=== PATIENT | female | born 1950 | race Caucasian/White ===

== ENCOUNTER 2020-03-10 13:21 | Observation (INO) | payer OTHER ==
[~2020-03-10] VITALS: Ht 167.6 cm; Wt 147.0 kg
--- NOTE | ~2020-03-10 | H ---
[address] [address] HISTORY AND PHYSICAL Name: LIZ PEREIRA Room: [address] Vicente Rosado#: [id number] Admission: 03/10/20 Attend Phys: Mk Medina DO Discharge: 03/11/20 Date of : 54 Report #: [id number] THIS REPORT FOR: //name// cc: Preet Funes John E. DO ~ THIS REPORT FOR: //name// For History and Physical please refer to the consultation note in the patient's medical record. By: 1451Medical Records Staff RAMAKRISHNA /HEATHER
[~2020-03-10 13:21] MED LIST: ACTOS15 MG; GLIPIZIDE 10 MG10 MG; LISINOPRIL-HCT1 EAC1; TRAMADOL 50 MG50 MG; ZOCOR40 MG
[2020-03-10 13:22] VITALS: BP 134/65
[2020-03-10] MEDS ORDERED: ASA81BEC PO (13:32)
[2020-03-10] MEDS ORDERED: OSTERA TABLET1 EAC1 PO (13:32)
[2020-03-10 15:23] VITALS: BP 107/55
[2020-03-10 20:00] VITALS: BP 127/67
[2020-03-11 08:10] VITALS: BP 136/65
[2020-03-11 13:00] VITALS: BP 136/65
--- NOTE | 2020-03-14 16:58 | OP ---
[address] [address] OPERATIVE REPORT Name: LIZ PEREIRA Room: [address] Alonzo#: [id number] Admission: 03/10/20 Attend Phys: Mk Medina DO Discharge: 03/11/20 Date of : 54 Report #: [id number] THIS REPORT FOR: //name// cc: Preet Funes John E. DO ~ THIS REPORT FOR: //name// CC: Preet Rodriguezie Jolanta DICTATED BY: Everett Bingham DO DATE OF SERVICE: 03/10/2020 TIME OF SURGERY: 15:30 SURGEON: Mk Medina DO ASSISTANTS: Margarita Medina DO and Everett Bingham DO PREOPERATIVE DIAGNOSIS: Left hip dislocation of total hip arthroplasty prosthesis. POSTOPERATIVE DIAGNOSIS: Left hip dislocation of total hip arthroplasty prosthesis. OPERATION PERFORMED: Closed reduction of left hip. INDICATIONS FOR SURGERY: The patient presented to [facility] ED accompanied by after bending forward at home, experiencing a sharp pain and slipping sensation causing her to fall and being unable to get up and bear weight on her left lower extremity. She presented to the [facility] Emergency Department where her leg was observed to be in a shortened and internally rotated position and slightly flexed relative to the left lower extremity. X-rays were obtained confirming that the left hip was in fact displaced. The femoral head was sitting posterior and superior relative to the acetabular cup. The femoral and acetabular components of the total hip arthroplasty prosthetic implants were determined to be well fixed and in proper alignment on x-rays. Closed reduction under conscious sedation in the Emergency Department was attempted, but was confirmed to be unsuccessful. DESCRIPTION OF PROCEDURE: Timeout was performed in the OR, confirming the patient, operative site. No preoperative antibiotics were given. Following timeout, the patient's left leg was placed into sustained manual traction for a brief period of time. Initial flexion, adduction, and internal rotation were used to attempt reduction of the hip. There was [place] [address] OPERATIVE REPORT Name: RANDALLLIZ A Room: [address]#: [id number] Admission: 03/10/20 Attend Phys: Mk Medina DO Discharge: 03/11/20 Date of : 54 Report #: [id number] indicating that the joint had been reduced. Traction was held, sustained manually for a longer period of time. Additional horizontal traction was applied as inline traction was maintained as well as adduction and slight internal rotation. The left hip was then felt to slip back into place with a palpable clunk. C-arm x-rays were obtained, verifying that the hip had been reduced. The patient was then awakened by Anesthesia. Again, she was under conscious sedation for this procedure. INTRAOPERATIVE FINDINGS: Left hip successfully reduced. No counts were necessary as this was a closed procedure. There were no drains. No specimens were removed. No implants. No blood loss. TOTAL FLUIDS GIVEN: 100. URINE OUTPUT: No urine output recorded. ANESTHESIA TYPE: Conscious sedation. ATTESTATION: I attest that Dr. Mk Medina was present in the operative suite for all critical parts of the procedure. DISPOSITION: The patient was transferred off the operative table onto a PACU table, re-aroused from the conscious sedation and participating in exam with Anesthesia and she was transferred to the PACU in stable condition. <ELECTRONICALLY SIGNED> By: Mk Medina DO 03/14/20 1658 1608 1624Roberjudy Medina DO /nt
== END 2020-03-11 13:35 | disposition home or self-care (01) ==
LOC: M.SUR 13:21 → M.ERS 13:21 → M.SUR 15:24 → M.3W 17:29
PROVIDERS: ADMIT Orthopaedic Surgery; ATTEND Orthopaedic Surgery
DX: S73.015A Posterior dislocation of left hip, initial encounter (principal); E11.9 Type 2 diabetes mellitus without complications; I10 Essential (primary) hypertension; X58.XXXA Exposure to other specified factors, initial encounter; Y92.89 Other specified places as the place of occurrence of the external cause; Y93.89 Activity, other specified; Y99.8 Other external cause status

== ENCOUNTER 2020-11-05 19:04 | Inpatient (IN) | payer OTHER ==
[~2020-11-05] VITALS: Ht 162.6 cm; Wt 140.4 kg
[~2020-11-05 19:04] MED LIST changes: +ASA81BEC PO; +OSTERA TABLET1 EAC1 PO
[2020-11-05 19:08] VITALS: BP 103/59
[2020-11-05 19:40] LABS: HEMATOCRIT 38.3 % (37.0-47.0); HEMOGLOBIN 12.8 gm/dL (12.0-15.0); MCH 30.8 pg (26.0-34.0); MCHC 33.4 g/dL (28.0-37.0); MCV 92.1 fL (80.0-100.0); NUCLEATED RBCS 0 /100WBC; PLATELET COUNT* 439 thou/uL (150-400); RBC 4.15 mil/uL (4.20-5.00); RDW-CV 14.2 % (10.5-14.5)
[2020-11-05 19:45] LABS: INFLUENZA A ANTIGEN Negative (Negative); INFLUENZA B ANTIGEN Negative (Negative)
[2020-11-05 19:48] LABS: CALCIUM 8.8 mg/dL (8.5-10.1); CREATININE 1.6 mg/dL (0.6-1.3)
[2020-11-05 19:57] LABS: INR 1.1; PROTIME 11.4 Seconds (9.20-11.50)
[2020-11-05 19:58] LABS: ALBUMIN 2.8 g/dL (3.4-5.0); MAGNESIUM 1.8 mg/dL (1.8-2.4); TOTAL BILIRUBIN 0.8 mg/dL (<0.1-1.0); TOTAL PROTEIN 7.1 g/dL (6.4-8.2)
[2020-11-05 20:07] LABS: ABSOLUTE EOSINOPHILS 0.2 thou/uL (0.0-0.7); ABSOLUTE LYMPHOCYTES 0.9 thou/uL (0.8-5.3); ABSOLUTE MONOCYTES 0.7 thou/uL (0.0-1.2); ABSOLUTE NEUTROPHILS 9.2 thou/uL (1.6-8.1)
[2020-11-05 20:08] LABS: PLATELET ESTIMATE ADEQUATE
[2020-11-05 21:30] VITALS: BP 104/55
[2020-11-05 21:34] LABS: URINE BLOOD NEGATIVE (Negative); URINE COLOR YELLOW; URINE GLUCOSE-RANDOM NEGATIVE (Negative); URINE KETONES 1+ (Negative); URINE LEUKOCYTES-REFLEX 1+ (Negative); URINE NITRITE-REFLEX NEGATIVE (Negative); URINE PROTEIN TRACE (Negative); URINE SPECIFIC GRAVITY >= 1.030 (1.005-1.030)
[2020-11-05 21:36] VITALS: BP 101/54
[2020-11-05 21:37] LABS: ICTOTEST (BILI CONFIRMATORY) Negative (Negative); URINE BILIRUBIN 3+ (Negative); URINE CLARITY HAZY
[2020-11-05 21:43] LABS: BACTERIA-REFLEX >30 Many /HPF (None Seen); CASTS None Seen /LPF (None Seen); CRYSTALS None Seen /LPF (None Seen); MUCUS 0-3 Light strn/LPF (None Seen); SQUAMOUS >10 Many /LPF (0-3); URINE RBC None Seen /HPF (0-2); URINE WBC-REFLEX >25 Many /HPF (0-5)
[2020-11-05 22:17] LABS: BE -5.5 mmol/L (-2 to +3); PCO2 28.2 mmHg (35.0-45.0); PO2 64.8 mmHg (75.0-100.0); pH 7.415 (7.340-7.450)
[2020-11-05 23:00] VITALS: BP 153/74
[2020-11-06 01:26] LABS: PCO2 26.6 mmHg (35.0-45.0); PO2 68.1 mmHg (75.0-100.0); pH 7.401 (7.340-7.450)
[2020-11-06 04:00] VITALS: BP 113/74
[2020-11-06 08:00] VITALS: BP 121/69
[2020-11-06 16:00] VITALS: BP 151/76
[2020-11-06 17:52] VITALS: BP 140/70
[2020-11-06 20:00] VITALS: BP 134/74
[2020-11-07] VITALS: BP 105/67
[2020-11-07 04:00] VITALS: BP 123/67
[2020-11-07 05:54] LABS: ABSOLUTE BASOPHILS 0.1 thou/uL (0.0-0.2); ABSOLUTE EOSINOPHILS 0.1 thou/uL (0.0-0.7); ABSOLUTE LYMPHOCYTES 0.4 thou/uL (0.8-5.3); ABSOLUTE MONOCYTES 0.3 thou/uL (0.0-1.2); ABSOLUTE NEUTROPHILS 9.6 thou/uL (1.6-8.1); BASOPHILS 0.5 %; EOSINOPHILS 1.1 %; HEMATOCRIT 34.9 % (37.0-47.0); HEMOGLOBIN 11.5 gm/dL (12.0-15.0); LYMPHOCYTES 3.5 %; MCH 30.8 pg (26.0-34.0); MCHC 32.9 g/dL (28.0-37.0); MCV 93.6 fL (80.0-100.0); MONOCYTES 2.8 %; MPV 8.7 fl. (7.2-11.1); NUCLEATED RBCS 0 /100WBC; PLATELET COUNT* 376 thou/uL (150-400); POLYS 92.1 %; RBC 3.73 mil/uL (4.20-5.00); RDW-CV 13.8 % (10.5-14.5); WBC 10.4 thou/uL (4.0-11.0)
[2020-11-07 06:04] LABS: CALCIUM 8.8 mg/dL (8.5-10.1); CREATININE 1.5 mg/dL (0.6-1.3); POTASSIUM 4.1 mmol/L (3.5-5.1)
--- NOTE | 2020-11-07 10:32 | EKG ---
[place] [address] ELECTROCARDIOGRAM REPORT Name: LIZ PEREIRA Room: [address] ADM IN 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
[2020-11-07 12:34] VITALS: BP 155/81
--- NOTE | 2020-11-07 13:10 | 2DMMODE ---
[place] [address] 2 D/M-MODE ECHOCARDIOGRAM Name: LIZ PEREIRA Room: [address] IN [facility]#: [id number] Admission: 11/05/20 Attend Phys: Tanja Tran, Discharge: Date of : 54 Date of Service: 11/07/20 1310 Report #: [id number] THIS REPORT FOR: cc: FAM - Family physician unknown FAM - Family physician unknown Jovani Simons MD [facility] ~ APPROVED REPORT Study performed: 11/07/2020 10:45:06 EXAM: Comprehensive 2D, Doppler, and color-flow Echocardiogram Patient Location: In-Patient Room #: [facility] Status: routine BSA: 2.31 HR: 107 bpm BP: 123/67 mmHg Rhythm: NSR Other Information Study Quality: Good Indications hypoxia 2D Dimensions IVSd: 12.30 (7-11mm) LVOT Diam: 19.93 (18-24mm) LVDd: 27.91 mm PWd: 12.04 (7-11mm) Ascending Ao: 32.00 (22-36mm) LVDs: 18.63 (25-40mm) Aortic Root: 30.91 mm Volumes Left Atrial Volume (Systole) LA ESV Index: 17.30 mL/m2 Aortic Valve AoV Peak Ky.: 1.73 m/s AO Peak Gr.: 11.92 mmHg LVOT Max P.48 mmHg AO Mean Gr.: 6.94 mmHg LVOT Mean P.03 mmHg LVOT Max V: 1.17 m/s AO V2 VTI: 29.54 cm LVOT Mean V: 0.82 m/s REBECCA (VTI): 2.15 cm2 LVOT V1 VTI: 20.39 [place] [address] 2 D/M-MODE ECHOCARDIOGRAM Name: LIZ PEREIRA Room: [address]#: [id number] Admission: 11/05/20 Attend Phys: Tanja Tran, Discharge: Date of : 54 Date of Service: 11/07/20 1310 Report #: [id number] Mitral Valve E/A Ratio: 0.76 MV Decel. Time: 137.47 ms MV E Max Ky.: 0.85 m/s MV PHT: 39.87 ms MVA (PHT): 5.52 cm2 TDI E/Lateral E': 7.08 E/Medial E': 10.63 Medial E' Ky.: 0.08 m/s Lateral E' Ky.: 0.12 m/s Pulmonary Valve PV Peak Ky.: 1.08 m/s PV Peak Gr.: 4.68 mmHg Left Ventricle The left ventricle is normal size. There is normal LV segmental wall motion. Mild concentric left ventricular hypertrophy. Left ventricular systolic function is normal. The left ventricular ejection fraction is within the normal range. LVEF is 60-65%. Grade I - abnormal relaxation pattern. Right Ventricle The right ventricle is normal size. The right ventricular systolic function is normal. Atria The left atrium size is normal. The right atrium size is normal. Aortic Valve Mild aortic valve sclerosis. No aortic regurgitation is present. There is no aortic valvular stenosis. Mitral Valve The mitral valve is normal in structure. There is no mitral valve regurgitation noted. No evidence of mitral valve stenosis. Tricuspid Valve The tricuspid valve is normal in structure. Trace tricuspid regurgitation. Unable to assess PA pressure. Pulmonic Valve The pulmonary valve is normal in structure. There is no pulmonic valvular reg[place] [address] 2 D/M-MODE ECHOCARDIOGRAM Name: LIZ PEREIRA Room: [address] IN [facility]#: [id number] Admission: 11/05/20 Attend Phys: Tanja Tran, Discharge: Date of : 54 Date of Service: 11/07/20 1310 Report #: [id number] Great Vessels The aortic root is normal in size. IVC is normal in size and collapses >50% with inspiration. Pericardium There is no pericardial effusion. <Conclusion> Mild concentric left ventricular hypertrophy. LVEF is 60-65%. Mild aortic valve sclerosis. <ELECTRONICALLY SIGNED> By: Jovani Simons MD, FACC 11/07/201309 09 09 Jovani Simons MD, FACC /INF
[2020-11-07 17:10] VITALS: BP 158/81
[2020-11-07 19:30] VITALS: BP 136/60
[2020-11-08 01:52] VITALS: BP 150/79
[2020-11-08 05:51] VITALS: BP 124/68
[2020-11-08 06:03] LABS: ABSOLUTE BASOPHILS 0.1 thou/uL (0.0-0.2); ABSOLUTE LYMPHOCYTES 0.4 thou/uL (0.8-5.3); ABSOLUTE MONOCYTES 0.9 thou/uL (0.0-1.2); ABSOLUTE NEUTROPHILS 12.7 thou/uL (1.6-8.1); BASOPHILS 0.9 %; HEMATOCRIT 37.1 % (37.0-47.0); HEMOGLOBIN 12.2 gm/dL (12.0-15.0); LYMPHOCYTES 2.8 %; MCH 30.7 pg (26.0-34.0); MCHC 32.7 g/dL (28.0-37.0); MCV 93.9 fL (80.0-100.0); MONOCYTES 6.6 %; MPV 8.4 fl. (7.2-11.1); NUCLEATED RBCS 0 /100WBC; POLYS 89.7 %; RBC 3.95 mil/uL (4.20-5.00); RDW-CV 13.9 % (10.5-14.5); WBC 14.1 thou/uL (4.0-11.0)
[2020-11-08 06:08] LABS: PLATELET COUNT* 476 thou/uL (150-400)
[2020-11-08 06:13] LABS: CREATININE 1.6 mg/dL (0.6-1.3); TOTAL BILIRUBIN 0.5 mg/dL (<0.1-1.0); TOTAL PROTEIN 6.8 g/dL (6.4-8.2)
[2020-11-08 08:00] VITALS: BP 152/49
--- NOTE | 2020-11-08 09:52 | EKG ---
[place] [address] ELECTROCARDIOGRAM REPORT Name: LIZ PEREIRA Room: [address] IN ..#: [id number] Admission: 11/05/20 Attend Phys: Tanja Tran, Discharge: Date of : 54 Date of Service: 11/08/20 0631 Report #: [id number] THIS REPORT FOR: //name// [facility] Test Date: 2020-11-08 Test Time: 06:31:35 Pat Name: LIZ PEREIRA Department: Room: [address] Gender: F Office Services Associate: NEIDA : 1950 Requested By: Milton España Order Number: [id number] MD: Rafi Nicolas Measurements Intervals [place] Rate: 111 P: 63 HI: 167 QRS: 30 QRSD: 105 T: 42 QT: 305 QTc: 415 Interpretive Statements Sinus tachycardia Artifact in lead(s) I,II,III,aVR,aVL,aVF Compared to ECG 11/05/2020 19:12:46 Sinus rhythm no longer present Electronically Signed On 11-08-2020 9:51:57 NAIL STICKER by Rafi Nicolas [email or web address] <ELECTRONICALLY SIGNED> By: Rafi Nicolas MD, FACC 11/08/2051 0 0 Rafi Nicolas MD, FAC /EPI
--- NOTE | 2020-11-08 09:52 | EKG ---
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: NEIDA : 1950 Requested By: Danilo Zavala Order Number: [id number] Reading MD: Rafi Nicolas Measurements Intervals [place] Rate: 108 P: 53 SD: 149 QRS: 24 QRSD: 111 T: 37 QT: 315 QTc: 422 Interpretive Statements Sinus tachycardia Abnormal R-wave progression, early transition Artifact in lead(s) I,II,III,aVR,aVL,aVF Compared to ECG 11/08/2020 06:31:35 No significant changes Electronically Signed On 11-08-2020 9:51:59 RESTAURANT MANAGING PARTNER by Rafi Nicolas [email or web address] <ELECTRONICALLY SIGNED> By: Rafi Nicolas MD, [facility] 11/08/20 0951 1 Rafi Nicolas MD, [facility] /EPI
[2020-11-08 12:00] VITALS: BP 116/87
[2020-11-08 19:30] VITALS: BP 132/63
[2020-11-08 21:56] VITALS: BP 117/56
[2020-11-09] VITALS (12 sets, daily range): BP systolic 95–136; BP diastolic 33–80
[2020-11-09 06:16] LABS: ABSOLUTE BASOPHILS 0.1 thou/uL (0.0-0.2); ABSOLUTE LYMPHOCYTES 0.4 thou/uL (0.8-5.3); ABSOLUTE MONOCYTES 0.7 thou/uL (0.0-1.2); ABSOLUTE NEUTROPHILS 10.1 thou/uL (1.6-8.1); BASOPHILS 1.3 %; EOSINOPHILS 0.1 %; HEMATOCRIT 32.3 % (37.0-47.0); HEMOGLOBIN 10.7 gm/dL (12.0-15.0); LYMPHOCYTES 3.5 %; MCHC 33.1 g/dL (28.0-37.0); MCV 93.9 fL (80.0-100.0); MONOCYTES 6.1 %; MPV 8.7 fl. (7.2-11.1); NUCLEATED RBCS 0 /100WBC; PLATELET COUNT* 384 thou/uL (150-400); RBC 3.44 mil/uL (4.20-5.00); RDW-CV 14.1 % (10.5-14.5); WBC 11.4 thou/uL (4.0-11.0)
[2020-11-09 06:31] LABS: ALBUMIN 2.5 g/dL (3.4-5.0); CALCIUM 8.9 mg/dL (8.5-10.1); CREATININE 1.4 mg/dL (0.6-1.3); MAGNESIUM 1.8 mg/dL (1.8-2.4); POTASSIUM 3.8 mmol/L (3.5-5.1); TOTAL BILIRUBIN 0.4 mg/dL (<0.1-1.0); TOTAL PROTEIN 5.6 g/dL (6.4-8.2)
[2020-11-10] VITALS (16 sets, daily range): BP systolic 101–151; BP diastolic 45–85
[2020-11-10 03:46] LABS: HEMATOCRIT 33.5 % (37.0-47.0); HEMOGLOBIN 10.9 gm/dL (12.0-15.0); MCH 30.9 pg (26.0-34.0); MCHC 32.7 g/dL (28.0-37.0); MCV 94.5 fL (80.0-100.0); MPV 8.5 fl. (7.2-11.1); NUCLEATED RBCS 0 /100WBC; PLATELET COUNT* 357 thou/uL (150-400); RBC 3.54 mil/uL (4.20-5.00); RDW-CV 14.5 % (10.5-14.5); WBC 11.8 thou/uL (4.0-11.0)
[2020-11-10 04:03] LABS: ALBUMIN 2.8 g/dL (3.4-5.0); CALCIUM 9.1 mg/dL (8.5-10.1); CREATININE 1.5 mg/dL (0.6-1.3); MAGNESIUM 1.9 mg/dL (1.8-2.4); POTASSIUM 4.4 mmol/L (3.5-5.1); TOTAL BILIRUBIN 0.3 mg/dL (<0.1-1.0); TOTAL PROTEIN 6.4 g/dL (6.4-8.2)
[2020-11-10 05:36] LABS: ABSOLUTE LYMPHOCYTES 0.7 thou/uL (0.8-5.3); ABSOLUTE MONOCYTES 0.2 thou/uL (0.0-1.2); ABSOLUTE NEUTROPHILS 10.9 thou/uL (1.6-8.1); ANISOCYTOSIS 1+; PLATELET ESTIMATE ADEQUATE; POIKILOCYTOSIS 1+
[2020-11-10 08:10] LABS: BE -1.6 mmol/L (-2 to +3); PCO2 34.9 mmHg (35.0-45.0); pH 7.425 (7.340-7.450)
--- NOTE | 2020-11-10 15:56 | CON ---
[address] [address] CONSULTATION Name: RANDALLLIZ Chanda Room: [address] IN .R.#: [id number] Admission: 11/05/20 Attend Phys: Tanja Tran MD Discharge: Date of : 54 Report #: [id number] THIS REPORT FOR: cc: FAM - Family physician unknown FAM - Family physician unknown ~ Jaron Greene MD DATE OF SERVICE: 11/07/2020 CONSULT REQUESTED BY: Danilo Zavala MD INDICATION FOR CONSULTATION: Acute hypoxemic respiratory failure secondary to COVID-19. HISTORY OF PRESENT ILLNESS: This is a 70-year-old female with past medical history as mentioned below. She does have morbid obesity, body mass index is 51.1 and it appears likely to me that the patient has fairly significant previously undiagnosed obstructive sleep apnea. The patient's baseline creatinine is not known to me. She is reported to be a lifetime nonsmoker. The patient provides only a limited history. Apparently, her recently had COVID-19. The patient is reported to have not been describing any symptoms; however, the patient's family was checking her pulse oximetry at home and found her to be hypoxemic and brought her to the Emergency Room. The patient at this time is describing only mild shortness of breath and denies any cough or sputum production. She also describes no fever or chills. The patient, however, is very hypoxic. At the time of my evaluation, she was on 90% FiO2 with 45 liters flow with a heated high-flow nasal cannula and was barely maintaining O2 saturation in the low 90s. The patient answers to the negative for 12 questions for review of systems. PAST MEDICAL HISTORY: Hypertension, diabetes, two pregnancies, C-sections, gallbladder surgery, bilateral total hip replacement, plates in the right wrist and right femur, morbid obesity, body mass index 51. SOCIAL HISTORY: There is no known history of smoking, ethanol abuse or drug abuse. CURRENT MEDICATIONS: List in [employer] reviewed. HOME MEDICATIONS: List in [employer] also reviewed. ALLERGIES: No known drug allergies. FAMILY HISTORY: There is a history of COVID-[place] [address] CONSULTATION Name: LIZ PEREIRA Room: [address]#: [id number] Admission: 11/05/20 Attend Phys: Tanja Tran MD Discharge: Date of : 54 Report #: [id number] PHYSICAL EXAMINATION: GENERAL: The patient is fully awake. VITAL SIGNS: She is tachycardic, pulse is 110 and a blood pressure of 158/81. She was saturating 93-94% with 90% FiO2 and 45 liters flow on a heated high-flow nasal cannula, respiratory rate was 20. She was afebrile with a temperature of 36.1. HEENT: Head is normocephalic and atraumatic. She does appear to have a narrow airway. NECK: Does not show raised JVP, asymmetry, mass or lymph nodes. CHEST: Symmetrical expansion on inspection and palpation. On auscultation, breath sounds are bilaterally equal. I do not hear any added sounds. HEART: Regular. There is no murmur. ABDOMEN: Soft and nontender. EXTREMITIES: Lower extremities show minimal edema only. There is no calf tenderness. SKIN: Dry and intact. NEUROLOGICAL: Moves all extremities bilaterally equally and spontaneously with no focal deficit identified. DIAGNOSTIC DATA: The patient's chest x-ray is reviewed and compared with the chest x-ray done 2 days ago. The patient has hypoxemia, which is out of proportion to the small interstitial infiltrates seen bilaterally. There is, however, a lobar infiltrate in the left lower lobe as well. There likely is atelectasis at the left lower lobe as well. It is possible there is a small pleural effusion; however, I do not clearly see a pleural effusion. The patient's lab work does show mild elevation in creatinine to around 1.5 in [facility] reviewed. Arterial blood gases does show a metabolic acidosis, compensated in [facility] reviewed. COVID-19 antigen is positive. D-dimer is significantly elevated. The urinalysis is abnormal and is in [facility] and this is reviewed. ASSESSMENT AND PLAN: 1. Acute hypoxemic respiratory failure secondary to COVID-19. I understand that it would be tough to keep the patient on a BiPAP. However, considering the fact that the patient has fairly significant morbid obesity and appears to have significant underlying obstructive sleep apnea. Further, there appears to be significant atelectasis at the left lung base. I do recommend attempting to keep her on BiPAP while asleep. When not on BiPAP, I recommend attempting prone positioning as well as ambulation to a chair to the extent feasible. 2. COVID-19. She is on remdesivir. She also is on Decadron. I agree with the current dose of Decadron. We will also continue with remdesivir. We will follow LFTs as well as creatinine closely. [address] [address] CONSULTATION Name: LIZ PEREIRA Room: [address] IN [facility].#: [id number] Admission: 11/05/20 Attend Phys: Tanja Tran MD Discharge: Date of : 54 Report #: [id number] 3. Pulmonary infiltrates. Considering that the patient has a lobar infiltrate at the left lower lobe, I agree with antibiotics as currently prescribed. If possible, we will check a sputum culture as well as a nasal swab for methicillin-resistant Staphylococcus aureus. 4. Atelectasis. There is significant atelectasis at the left lung base. I recommend BiPAP as well as ambulation as above, if feasible. Also, we will switch her nebulized bronchodilators to Xopenex with Mucomyst. If the patient is able to do incentive spirometry then this will be of benefit. It appears unlikely to me that there is a pleural effusion on the left side. Regardless, I will do a chest ultrasound to assess if significant pleural effusion is present. 5. Elevated D-dimer, venous Dopplers are negative and the right heart pressures are not elevated on the echo. However, the patient is considerably more hypoxic than I would expect based on the chest x-ray; therefore to cover for micro thromboembolism. I agree with continuing full dose Lovenox as currently ordered. 6. Mild renal insufficiency, baseline creatinine is not known to me. I will do a renal ultrasound and verify absence of obstruction in the urinary tract. 7. Gastrointestinal prophylaxis, on Protonix. 8. Clostridium difficile prophylaxis. We will order Lactinex. Thanks for this consultation. <ELECTRONICALLY SIGNED> By: Jaron Greene MD 11/10/20 1556 [id number]
[2020-11-11] VITALS (46 sets, daily range): BP systolic 95–155; BP diastolic 38–89
[2020-11-11 03:37] LABS: HEMATOCRIT 29.6 % (37.0-47.0); HEMOGLOBIN 9.6 gm/dL (12.0-15.0); MCH 30.7 pg (26.0-34.0); MCHC 32.5 g/dL (28.0-37.0); MCV 94.5 fL (80.0-100.0); MPV 8.5 fl. (7.2-11.1); RBC 3.13 mil/uL (4.20-5.00); RDW-CV 14.3 % (10.5-14.5); WBC 15.1 thou/uL (4.0-11.0)
[2020-11-11 03:47] LABS: ALBUMIN 2.5 g/dL (3.4-5.0); CALCIUM 8.5 mg/dL (8.5-10.1); CREATININE 1.7 mg/dL (0.6-1.3); POTASSIUM 4.3 mmol/L (3.5-5.1); TOTAL BILIRUBIN 0.4 mg/dL (<0.1-1.0); TOTAL PROTEIN 5.4 g/dL (6.4-8.2)
--- NOTE | 2020-11-11 08:56 | EKG ---
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: MS : 1950 Requested By: Shawna Hutton Order Number: [id number] Reading MD: Jovani Simons Measurements Intervals [place] Rate: 71 P: 39 MT: 180 QRS: 34 QRSD: 82 T: 34 QT: 366 QTc: 398 Interpretive Statements Sinus rhythm Abnormal R-wave progression, early transition Compared to ECG 11/08/2020 06:32:37 Sinus tachycardia no longer present Electronically Signed On 11-11-2020 8:56:17 ARTIST RELATIONSHIP MANAGER by Jovani Simons [email or web address] <ELECTRONICALLY SIGNED> By: Jovani Simons MD, [facility] 11/11/20 0856 Jovani Simons MD, [facility] /EPI
[2020-11-12] VITALS (24 sets, daily range): BP systolic 111–156; BP diastolic 35–74
[2020-11-12 04:42] LABS: HEMATOCRIT 30.5 % (37.0-47.0); HEMOGLOBIN 9.7 gm/dL (12.0-15.0); MCH 30.6 pg (26.0-34.0); MCHC 31.9 g/dL (28.0-37.0); MCV 95.8 fL (80.0-100.0); MPV 8.8 fl. (7.2-11.1); RBC 3.18 mil/uL (4.20-5.00); RDW-CV 15.1 % (10.5-14.5); WBC 23.6 thou/uL (4.0-11.0)
[2020-11-12 04:53] LABS: ALBUMIN 2.6 g/dL (3.4-5.0); CREATININE 1.5 mg/dL (0.6-1.3); MAGNESIUM 2.1 mg/dL (1.8-2.4); POTASSIUM 3.9 mmol/L (3.5-5.1); TOTAL BILIRUBIN 0.5 mg/dL (<0.1-1.0); TOTAL PROTEIN 5.4 g/dL (6.4-8.2)
[2020-11-13] VITALS (21 sets, daily range): BP systolic 97–158; BP diastolic 40–82
[2020-11-13 03:30] LABS: HEMATOCRIT 29.1 % (37.0-47.0); HEMOGLOBIN 9.2 gm/dL (12.0-15.0); MCH 30.4 pg (26.0-34.0); MCHC 31.5 g/dL (28.0-37.0); MCV 96.5 fL (80.0-100.0); MPV 8.9 fl. (7.2-11.1); RBC 3.01 mil/uL (4.20-5.00); RDW-CV 15.2 % (10.5-14.5); WBC 24.7 thou/uL (4.0-11.0)
[2020-11-13 03:47] LABS: CALCIUM 9.2 mg/dL (8.5-10.1); CREATININE 1.4 mg/dL (0.6-1.3); POTASSIUM 4.2 mmol/L (3.5-5.1)
[2020-11-14 01:30] VITALS: BP 129/68
[2020-11-14 05:16] LABS: HEMATOCRIT 24.8 % (37.0-47.0); MCH 30.7 pg (26.0-34.0); MCHC 32.2 g/dL (28.0-37.0); MCV 95.5 fL (80.0-100.0); MPV 9.2 fl. (7.2-11.1); RBC 2.59 mil/uL (4.20-5.00); RDW-CV 14.6 % (10.5-14.5); WBC 17.9 thou/uL (4.0-11.0)
[2020-11-14 05:25] VITALS: BP 120/55
[2020-11-14 05:33] LABS: CALCIUM 8.4 mg/dL (8.5-10.1); CREATININE 1.1 mg/dL (0.6-1.3); POTASSIUM 3.9 mmol/L (3.5-5.1)
[2020-11-14 08:53] VITALS: BP 153/53
[2020-11-14 12:24] VITALS: BP 125/44
[2020-11-14 15:54] VITALS: BP 131/57
[2020-11-14 20:00] VITALS: BP 124/53
[2020-11-15 00:39] VITALS: BP 129/58
[2020-11-15 05:26] LABS: HEMATOCRIT 23.6 % (37.0-47.0); HEMOGLOBIN 7.6 gm/dL (12.0-15.0); MCHC 32.3 g/dL (28.0-37.0); MCV 95.9 fL (80.0-100.0); MPV 9.7 fl. (7.2-11.1); NUCLEATED RBCS 0 /100WBC; PLATELET COUNT* 200 thou/uL (150-400); RBC 2.46 mil/uL (4.20-5.00); WBC 14.9 thou/uL (4.0-11.0)
[2020-11-15 05:47] LABS: CREATININE 1.1 mg/dL (0.6-1.3); POTASSIUM 3.9 mmol/L (3.5-5.1); TOTAL BILIRUBIN 0.6 mg/dL (<0.1-1.0); TOTAL PROTEIN 4.6 g/dL (6.4-8.2)
[2020-11-15 07:18] LABS: ABSOLUTE LYMPHOCYTES 0.7 thou/uL (0.8-5.3); ABSOLUTE MONOCYTES 1.9 thou/uL (0.0-1.2); ABSOLUTE NEUTROPHILS 12.2 thou/uL (1.6-8.1); ANISOCYTOSIS 1+; HYPOCHROMASIA 1+; PLATELET ESTIMATE ADEQUATE; POIKILOCYTOSIS 1+; POLYCHROMASIA Occasional
[2020-11-15 07:20] VITALS: BP 113/46
[2020-11-15 12:10] VITALS: BP 127/49
[2020-11-15 17:00] VITALS: BP 151/93
[2020-11-15 20:00] VITALS: BP 121/36
[2020-11-15 23:21] VITALS: BP 126/53
[2020-11-16 05:32] LABS: ABSOLUTE LYMPHOCYTES 0.5 thou/uL (0.8-5.3); ABSOLUTE MONOCYTES 1.5 thou/uL (0.0-1.2); ABSOLUTE NEUTROPHILS 11.3 thou/uL (1.6-8.1); BASOPHILS 0.2 %; LYMPHOCYTES 3.7 %; MCH 30.9 pg (26.0-34.0); MCV 96.5 fL (80.0-100.0); MONOCYTES 11.2 %; MPV 9.4 fl. (7.2-11.1); NUCLEATED RBCS 0 /100WBC; PLATELET COUNT* 185 thou/uL (150-400); POLYS 84.9 %; RBC 2.28 mil/uL (4.20-5.00); RDW-CV 15.1 % (10.5-14.5); WBC 13.3 thou/uL (4.0-11.0)
[2020-11-16 05:43] VITALS: BP 122/48
[2020-11-16 06:01] LABS: ALBUMIN 2.3 g/dL (3.4-5.0); TOTAL BILIRUBIN 0.7 mg/dL (<0.1-1.0); TOTAL PROTEIN 4.7 g/dL (6.4-8.2)
[2020-11-16 08:00] VITALS: BP 108/48
[2020-11-16 13:35] VITALS: BP 140/59
[2020-11-16 16:05] VITALS: BP 119/57
[2020-11-17] VITALS (7 sets, daily range): BP systolic 114–149; BP diastolic 57–62
[2020-11-17 05:48] LABS: ABSOLUTE LYMPHOCYTES 0.3 thou/uL (0.8-5.3); ABSOLUTE MONOCYTES 0.6 thou/uL (0.0-1.2); ABSOLUTE NEUTROPHILS 12.1 thou/uL (1.6-8.1); BASOPHILS 0.2 %; HEMATOCRIT 25.3 % (37.0-47.0); HEMOGLOBIN 8.4 gm/dL (12.0-15.0); MCH 31.9 pg (26.0-34.0); MCV 96.6 fL (80.0-100.0); MONOCYTES 4.5 %; MPV 9.8 fl. (7.2-11.1); NUCLEATED RBCS 1 /100WBC; PLATELET COUNT* 207 thou/uL (150-400); POLYS 93.3 %; RBC 2.62 mil/uL (4.20-5.00)
[2020-11-17 06:03] LABS: ALBUMIN 2.6 g/dL (3.4-5.0); CREATININE 1.2 mg/dL (0.6-1.3); POTASSIUM 4.1 mmol/L (3.5-5.1); PREALBUMIN 21.4 mg/dL (18.0-35.7); TOTAL PROTEIN 5.5 g/dL (6.4-8.2)
--- NOTE | 2020-11-17 16:08 | 2DMMODE ---
[place] [address] 2 D/M-MODE ECHOCARDIOGRAM Name: LIZ PEREIRA Chanda Room: [address] IN [facility]#: [id number] Admission: 11/05/20 Attend Phys: Tanja Tarn, Discharge: Date of : 54 Date of Service: 11/17/20 1608 Report #: [id number] THIS REPORT FOR: cc: FAM - Family physician unknown FAM - Family physician unknown Preet Vera MD [facility] ~ APPROVED REPORT Study performed: 11/17/2020 14:48:32 EXAM: Limited 2D Echocardiogram Patient Location: In-Patient Room #: [facility] Status: routine BSA: 2.35 HR: 95 bpm BP: 131/58 mmHg Rhythm: NSR Other Information Study Quality: Adequate Indications re-assess PA pressure Tricuspid Valve RAP Estimate: 5.00 mmHg TR Peak Gr.: 25.85 mmHg RVSP: 30.00 mmHg PA Pressure: 30.00 mmHg Left Ventricle The left ventricle is normal size. There is normal LV segmental wall motion. Borderline concentric left ventricular hypertrophy. The left ventricular systolic function is normal. The left ventricular ejection fraction is within the normal range. LVEF is 60%. Grade I - abnormal relaxation pattern. Right Ventricle The right ventricle is normal size. The right ventricular systolic function is normal. Atria The left atrium size is normal. The right [place] [address] 2 D/M-MODE ECHOCARDIOGRAM Name: LIZ PEREIRA Room: [address] IN .R.#: [id number] Admission: 11/05/20 Attend Phys: Tanja Tran, Discharge: Date of : 54 Date of Service: 11/17/20 1608 Report #: [id number] Aortic Valve The aortic valve is normal in structure. Mitral Valve The mitral valve is normal in structure. Tricuspid Valve The tricuspid valve is normal in structure. Trace tricuspid regurgitation. Borderline pulmonary hypertension. Great Vessels The aortic root is normal in size. IVC is normal in size and collapses >50% with inspiration. Pericardium There is no pericardial effusion. <Conclusion> The left ventricle is normal size. Borderline concentric left ventricular hypertrophy. The left ventricular systolic function is normal. The left ventricular ejection fraction is within the normal range. LVEF is 60%. Grade I - abnormal relaxation pattern. The right ventricle is normal size. The left atrium size is normal. The right atrium size is normal. The aortic valve is normal in structure. The mitral valve is normal in structure. The tricuspid valve is normal in structure. IVC is normal in size and collapses >50% with inspiration. There is no pericardial effusion. There is normal LV segmental wall motion. <ELECTRONICALLY SIGNED> By: Preet Vera MD, [facility] 11/17/20 1608 160 07 Preet Vera MD, [facility] /INF
[2020-11-18 04:04] VITALS: BP 117/58
[2020-11-18 05:32] LABS: HEMATOCRIT 25.8 % (37.0-47.0); HEMOGLOBIN 8.3 gm/dL (12.0-15.0); MCH 31.3 pg (26.0-34.0); MCHC 32.2 g/dL (28.0-37.0); MCV 97.2 fL (80.0-100.0); MPV 9.3 fl. (7.2-11.1); RBC 2.65 mil/uL (4.20-5.00); RDW-CV 16.7 % (10.5-14.5); WBC 17.1 thou/uL (4.0-11.0)
[2020-11-18 05:37] LABS: CALCIUM 8.6 mg/dL (8.5-10.1); CREATININE 1.7 mg/dL (0.6-1.3); POTASSIUM 3.5 mmol/L (3.5-5.1)
[2020-11-18 08:30] VITALS: BP 111/50
[2020-11-18 16:15] VITALS: BP 141/51
[2020-11-18 20:10] VITALS: BP 105/69
[2020-11-18 22:01] LABS: URINE BILIRUBIN NEGATIVE (Negative); URINE BLOOD 3+ (Negative); URINE CLARITY SL CLOUDY; URINE COLOR BROWN; URINE GLUCOSE-RANDOM NEGATIVE (Negative); URINE KETONES NEGATIVE (Negative); URINE LEUKOCYTES-REFLEX NEGATIVE (Negative); URINE NITRITE-REFLEX NEGATIVE (Negative); URINE PROTEIN 3+ (Negative); URINE SPECIFIC GRAVITY >= 1.030 (1.005-1.030); URINE UROBILINOGEN 0.2 E.U./dl (0.2-1.0)
[2020-11-18 22:03] LABS: CASTS None Seen /LPF (None Seen); CRYSTALS None Seen /LPF (None Seen); MUCUS 0-3 Light strn/LPF (None Seen); SQUAMOUS 0-3 Few /LPF (0-3); URINE RBC >20 Many /HPF (0-2); URINE WBC-REFLEX 0-5 Rare /HPF (0-5)
[2020-11-18 23:09] VITALS: BP 129/35
[2020-11-19 04:00] VITALS: BP 102/45
[2020-11-19 06:49] LABS: HEMATOCRIT 23.8 % (37.0-47.0); HEMOGLOBIN 7.6 gm/dL (12.0-15.0); MCH 31.4 pg (26.0-34.0); MCHC 31.8 g/dL (28.0-37.0); MCV 98.7 fL (80.0-100.0); NUCLEATED RBCS 0 /100WBC; PLATELET COUNT* 204 thou/uL (150-400); RBC 2.41 mil/uL (4.20-5.00); RDW-CV 18.4 % (10.5-14.5); WBC 20.6 thou/uL (4.0-11.0)
[2020-11-19 07:02] LABS: CALCIUM 6.6 mg/dL (8.5-10.1); CREATININE 1.8 mg/dL (0.6-1.3); MAGNESIUM 1.7 mg/dL (1.8-2.4)
[2020-11-19 07:04] LABS: POTASSIUM 2.6 mmol/L (3.5-5.1)
[2020-11-19 07:40] VITALS: BP 120/57
[2020-11-19 07:58] LABS: ABSOLUTE LYMPHOCYTES 0.4 thou/uL (0.8-5.3); ABSOLUTE MONOCYTES 0.8 thou/uL (0.0-1.2); ABSOLUTE NEUTROPHILS 19.4 thou/uL (1.6-8.1)
[2020-11-19 07:59] LABS: ANISOCYTOSIS 1+; PLATELET ESTIMATE ADEQUATE; POLYCHROMASIA 1+
[2020-11-19 08:14] LABS: ABSOLUTE BASOPHILS 0.2 thou/uL (0.0-0.2); ABSOLUTE LYMPHOCYTES 0.6 thou/uL (0.8-5.3); ABSOLUTE MONOCYTES 1.3 thou/uL (0.0-1.2); ABSOLUTE NEUTROPHILS 21.1 thou/uL (1.6-8.1); BASOPHILS 0.8 %; EOSINOPHILS 0.2 %; HEMATOCRIT 23.9 % (37.0-47.0); HEMOGLOBIN 7.7 gm/dL (12.0-15.0); LYMPHOCYTES 2.5 %; MCH 31.3 pg (26.0-34.0); MCHC 32.3 g/dL (28.0-37.0); MCV 96.9 fL (80.0-100.0); MONOCYTES 5.5 %; MPV 9.3 fl. (7.2-11.1); NUCLEATED RBCS 0 /100WBC; PLATELET COUNT* 212 thou/uL (150-400); RBC 2.46 mil/uL (4.20-5.00); RDW-CV 17.3 % (10.5-14.5); WBC 23.2 thou/uL (4.0-11.0)
[2020-11-19 08:20] LABS: CALCIUM 7.6 mg/dL (8.5-10.1); CREATININE 1.6 mg/dL (0.6-1.3)
[2020-11-19 08:23] LABS: POTASSIUM 2.9 mmol/L (3.5-5.1)
[2020-11-19 14:00] VITALS: BP 107/52
[2020-11-19 19:30] VITALS: BP 102/57
[2020-11-20] VITALS (7 sets, daily range): BP systolic 92–128; BP diastolic 50–55
[2020-11-20 06:07] LABS: HEMATOCRIT 22.6 % (37.0-47.0); HEMOGLOBIN 7.3 gm/dL (12.0-15.0); MCH 31.5 pg (26.0-34.0); MCHC 32.1 g/dL (28.0-37.0); MCV 98.3 fL (80.0-100.0); RBC 2.3 mil/uL (4.20-5.00); RDW-CV 18.7 % (10.5-14.5); WBC 19.8 thou/uL (4.0-11.0)
[2020-11-20 06:12] LABS: CALCIUM 8.7 mg/dL (8.5-10.1); CREATININE 1.5 mg/dL (0.6-1.3); POTASSIUM 3.4 mmol/L (3.5-5.1)
[2020-11-21] VITALS (7 sets, daily range): BP systolic 104–137; BP diastolic 40–59
[2020-11-21 05:11] LABS: HEMATOCRIT 20.5 % (37.0-47.0); MCH 31.6 pg (26.0-34.0); MCHC 32.1 g/dL (28.0-37.0); MCV 98.4 fL (80.0-100.0); MPV 9.1 fl. (7.2-11.1); RBC 2.08 mil/uL (4.20-5.00); RDW-CV 18.6 % (10.5-14.5); WBC 16.3 thou/uL (4.0-11.0)
[2020-11-21 05:18] LABS: CALCIUM 7.7 mg/dL (8.5-10.1); CREATININE 1.4 mg/dL (0.6-1.3); POTASSIUM 3.7 mmol/L (3.5-5.1)
[2020-11-21 05:21] LABS: HEMOGLOBIN 6.6 gm/dL (12.0-15.0)
[2020-11-21 08:28] LABS: HEMATOCRIT 21.1 % (37.0-47.0); MCH 31.6 pg (26.0-34.0); MCHC 32.1 g/dL (28.0-37.0); MCV 98.4 fL (80.0-100.0); RBC 2.14 mil/uL (4.20-5.00); RDW-CV 18.1 % (10.5-14.5); WBC 16.5 thou/uL (4.0-11.0)
[2020-11-21 08:32] LABS: HEMOGLOBIN 6.8 gm/dL (12.0-15.0)
[2020-11-21 08:33] LABS: CALCIUM 7.4 mg/dL (8.5-10.1); CREATININE 1.2 mg/dL (0.6-1.3); POTASSIUM 3.9 mmol/L (3.5-5.1)
[2020-11-22 00:03] VITALS: BP 118/49
[2020-11-22 04:20] VITALS: BP 101/46
[2020-11-22 05:09] LABS: HEMATOCRIT 23.9 % (37.0-47.0); HEMOGLOBIN 7.9 gm/dL (12.0-15.0); MCH 31.8 pg (26.0-34.0); MCHC 33.1 g/dL (28.0-37.0); MCV 96.1 fL (80.0-100.0); MPV 9.2 fl. (7.2-11.1); NUCLEATED RBCS 0 /100WBC; PLATELET COUNT* 164 thou/uL (150-400); RBC 2.49 mil/uL (4.20-5.00); RDW-CV 19.1 % (10.5-14.5); WBC 14.9 thou/uL (4.0-11.0)
[2020-11-22 05:27] LABS: ALBUMIN 2.3 g/dL (3.4-5.0); CALCIUM 7.3 mg/dL (8.5-10.1); CREATININE 1.1 mg/dL (0.6-1.3); POTASSIUM 4.4 mmol/L (3.5-5.1); TOTAL BILIRUBIN 1.2 mg/dL (<0.1-1.0); TOTAL PROTEIN 4.9 g/dL (6.4-8.2)
[2020-11-22 05:57] LABS: ABSOLUTE LYMPHOCYTES 0.3 thou/uL (0.8-5.3); ABSOLUTE MONOCYTES 0.7 thou/uL (0.0-1.2); ABSOLUTE NEUTROPHILS 13.9 thou/uL (1.6-8.1); ANISOCYTOSIS 1+; PLATELET ESTIMATE ADEQUATE; POIKILOCYTOSIS 1+
[2020-11-22 05:58] LABS: HYPOCHROMASIA Occasional; POLYCHROMASIA Occasional
[2020-11-22 08:00] VITALS: BP 97/58
[2020-11-22 12:00] VITALS: BP 109/48
[2020-11-22 16:00] VITALS: BP 130/46
[2020-11-22 19:58] VITALS: BP 137/56
[2020-11-23 00:45] VITALS: BP 134/56
[2020-11-23 03:33] VITALS: BP 100/56
[2020-11-23 05:12] LABS: ABSOLUTE BASOPHILS 0.1 thou/uL (0.0-0.2); ABSOLUTE LYMPHOCYTES 0.7 thou/uL (0.8-5.3); ABSOLUTE MONOCYTES 0.8 thou/uL (0.0-1.2); ABSOLUTE NEUTROPHILS 13.1 thou/uL (1.6-8.1); BASOPHILS 0.5 %; EOSINOPHILS 0.1 %; HEMATOCRIT 26.4 % (37.0-47.0); HEMOGLOBIN 8.6 gm/dL (12.0-15.0); LYMPHOCYTES 4.5 %; MCH 31.7 pg (26.0-34.0); MCHC 32.5 g/dL (28.0-37.0); MCV 97.6 fL (80.0-100.0); MONOCYTES 5.7 %; MPV 8.6 fl. (7.2-11.1); NUCLEATED RBCS 0 /100WBC; PLATELET COUNT* 188 thou/uL (150-400); POLYS 89.2 %; RBC 2.71 mil/uL (4.20-5.00); RDW-CV 19.4 % (10.5-14.5); WBC 14.7 thou/uL (4.0-11.0)
[2020-11-23 05:41] LABS: ALBUMIN 2.6 g/dL (3.4-5.0); CALCIUM 8.6 mg/dL (8.5-10.1); CREATININE 1.2 mg/dL (0.6-1.3); MAGNESIUM 2.1 mg/dL (1.8-2.4); PHOSPHORUS* 2.5 mg/dL (2.5-4.9); POTASSIUM 4.6 mmol/L (3.5-5.1); TOTAL BILIRUBIN 1.5 mg/dL (<0.1-1.0); TOTAL PROTEIN 5.3 g/dL (6.4-8.2)
[2020-11-23 08:00] VITALS: BP 132/53
[2020-11-23 12:00] VITALS: BP 133/61
[2020-11-23 16:00] VITALS: BP 130/64
[2020-11-23 20:00] VITALS: BP 151/69
[2020-11-24] VITALS: BP 146/68
[2020-11-24 04:30] VITALS: BP 153/57
[2020-11-24 04:32] LABS: ABSOLUTE BASOPHILS 0.1 thou/uL (0.0-0.2); ABSOLUTE LYMPHOCYTES 0.6 thou/uL (0.8-5.3); ABSOLUTE MONOCYTES 0.9 thou/uL (0.0-1.2); ABSOLUTE NEUTROPHILS 10.8 thou/uL (1.6-8.1); BASOPHILS 0.4 %; EOSINOPHILS 0.3 %; HEMATOCRIT 24.6 % (37.0-47.0); MCH 32.3 pg (26.0-34.0); MCHC 32.7 g/dL (28.0-37.0); MCV 98.9 fL (80.0-100.0); MPV 7.9 fl. (7.2-11.1); NUCLEATED RBCS 0 /100WBC; PLATELET COUNT* 176 thou/uL (150-400); POLYS 87.3 %; RBC 2.49 mil/uL (4.20-5.00); RDW-CV 20.7 % (10.5-14.5); WBC 12.4 thou/uL (4.0-11.0)
[2020-11-24 05:10] LABS: ALBUMIN 2.3 g/dL (3.4-5.0); CALCIUM 8.5 mg/dL (8.5-10.1); CREATININE 1.1 mg/dL (0.6-1.3); POTASSIUM 4.3 mmol/L (3.5-5.1); TOTAL BILIRUBIN 0.9 mg/dL (<0.1-1.0); TOTAL PROTEIN 4.9 g/dL (6.4-8.2)
[2020-11-24 08:00] VITALS: BP 112/53
[2020-11-24 13:15] VITALS: BP 127/52
[2020-11-24 14:01] VITALS: BP 127/52
--- NOTE | 2020-11-28 10:48 | CON ---
[address] [address] CONSULTATION Name: RANDALLLIZ Chanda Room: [address] [place] .R.#: [id number] Admission: 11/05/20 Attend Phys: Tanja Tran MD Discharge: 11/24/20 Date of : 54 Report #: [id number] THIS REPORT FOR: cc: FAM - Family physician unknown FAM - Family physician unknown ~ Dionte Garber MD DATE OF SERVICE: 11/16/2020 HISTORY OF PRESENT ILLNESS: This is a 70-year-old female patient who was evaluated by me for altered mental status. The patient does not provide any reliable history. I reviewed the patient's record and subsequently gave a call to the patient's and talked to her. The wants me to talk to his son and I called him and I talked to him also. The history I get is that this patient was losing short-term memory even before the COVID. That has started spontaneously without any trauma. She was still able to do most of the things by herself. After COVID, she became more confused and intermittently agitated, as I understand. She is being followed by multiple consultants for the time being. Reviewing those notes, it would appear that the patient had trouble with maintaining oxygen saturation. REVIEW OF SYSTEMS: Positive for COVID pneumonia and she is being followed by multiple consultants. It looks like she was having diminished memory even before that. She had some acute kidney injury. She has agitation, question of sleep apnea as I understand, possible steroids and psychosis. This was a relevant 14-point review of system. PAST MEDICAL HISTORY: Positive for short-term memory loss, which started prior to COVID infection. FAMILY HISTORY: Unremarkable. SOCIAL HISTORY: According to the , she does not drink any alcohol or smoke. PHYSICAL EXAMINATION: Indicates she is alert. She is responsive. She cannot tell me what month it is. She was able to tell me what hospital she is in. She could not name the president. Cranial nerve examination 2-12, the best it could be carried out, looks nonfocal. She moves both sides, but does not cooperate with the strength, sensation or reflexes testing. She says she is weak all over. She did not raise her arms above the elbow. When I did the position sense, she did okay in both lower extremities. Reflexes, she did not relax. There is no meningeal sign. I do not know much about the cerebellar sign because [place] [address] CONSULTATION Name: LIZ PEREIRA Room: [address]#: [id number] Admission: 11/05/20 Attend Phys: Tanja Trna MD Discharge: 11/24/20 Date of : 54 Report #: [id number] IMPRESSION: This patient appeared to be developing baseline dementia prior to the COVID infection. I think that decompensated heart condition and she developed superimposed encephalopathy. 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 I will talk to Dr. Villatoro tomorrow. I ordered TSH and vitamin B12. I will suggest considering an imaging study on the patient's brain. Imaging study can be MRI of the brain, if she can tolerate that. If she cannot, then a CT scan can be done. She also appeared to be weak in the proximal muscles. I do not know how long that is going on and again I will discuss that with Dr. Villatoro that we need some further workup. More than 50 minutes of time was spent taking care of this patient today and majority was spent counseling and coordinating. <ELECTRONICALLY SIGNED> By: Dionte Garber MD 11/28/20 [id number] Garber MD /nt
== END 2020-11-24 15:35 | DRG 177 ==
LOC: M.ERS 19:04 → M.ORTHSURG 20:54 → M.TBA-ER 20:54 → M.ORTHSURG 22:24 → M.ICU 11-09 22:36 → M.ORTHSURG 11-13 17:30
PROVIDERS: Emergency Medicine; Family Medicine; Internal Medicine; Internal Medicine Critical Care Medicine; Psychiatry & Neurology Neurology; ADMIT Internal Medicine; ATTEND Internal Medicine
PROC: XW033E5 Introduction of Remdesivir Anti-infective into Peripheral Vein, Percutaneous Approach, New Technology Group 5 (ICD-10-PCS; principal; 2020-11-06)
PROC: XW13325 Transfusion of Convalescent Plasma (Nonautologous) into Peripheral Vein, Percutaneous Approach, New Technology Group 5 (ICD-10-PCS; principal; 2020-11-06)
PROC: 5A0935A Assistance with Respiratory Ventilation, Less than 24 Consecutive Hours, High Flow/Velocity Cannula (ICD-10-PCS; 2020-11-08)
PROC: 5A09357 Assistance with Respiratory Ventilation, Less than 24 Consecutive Hours, Continuous Positive Airway Pressure (ICD-10-PCS; 2020-11-08)
PROC: 5A09357 Assistance with Respiratory Ventilation, Less than 24 Consecutive Hours, Continuous Positive Airway Pressure (ICD-10-PCS; 2020-11-09)
PROC: 5A0935A Assistance with Respiratory Ventilation, Less than 24 Consecutive Hours, High Flow/Velocity Cannula (ICD-10-PCS; 2020-11-09)
PROC: 5A0935A Assistance with Respiratory Ventilation, Less than 24 Consecutive Hours, High Flow/Velocity Cannula (ICD-10-PCS; 2020-11-10)
PROC: 5A09357 Assistance with Respiratory Ventilation, Less than 24 Consecutive Hours, Continuous Positive Airway Pressure (ICD-10-PCS; 2020-11-10)
PROC: 5A09357 Assistance with Respiratory Ventilation, Less than 24 Consecutive Hours, Continuous Positive Airway Pressure (ICD-10-PCS; 2020-11-12)
PROC: 5A0935A Assistance with Respiratory Ventilation, Less than 24 Consecutive Hours, High Flow/Velocity Cannula (ICD-10-PCS; 2020-11-12)
PROC: 5A09357 Assistance with Respiratory Ventilation, Less than 24 Consecutive Hours, Continuous Positive Airway Pressure (ICD-10-PCS; 2020-11-13)
PROC: 5A0935A Assistance with Respiratory Ventilation, Less than 24 Consecutive Hours, High Flow/Velocity Cannula (ICD-10-PCS; 2020-11-13)
PROC: 5A09357 Assistance with Respiratory Ventilation, Less than 24 Consecutive Hours, Continuous Positive Airway Pressure (ICD-10-PCS; 2020-11-14)
PROC: 5A0935A Assistance with Respiratory Ventilation, Less than 24 Consecutive Hours, High Flow/Velocity Cannula (ICD-10-PCS; 2020-11-14)
PROC: 5A0935A Assistance with Respiratory Ventilation, Less than 24 Consecutive Hours, High Flow/Velocity Cannula (ICD-10-PCS; 2020-11-15)
PROC: 5A09357 Assistance with Respiratory Ventilation, Less than 24 Consecutive Hours, Continuous Positive Airway Pressure (ICD-10-PCS; 2020-11-15)
PROC: 5A0935A Assistance with Respiratory Ventilation, Less than 24 Consecutive Hours, High Flow/Velocity Cannula (ICD-10-PCS; 2020-11-16)
PROC: 5A09357 Assistance with Respiratory Ventilation, Less than 24 Consecutive Hours, Continuous Positive Airway Pressure (ICD-10-PCS; 2020-11-16)
PROC: 5A0935A Assistance with Respiratory Ventilation, Less than 24 Consecutive Hours, High Flow/Velocity Cannula (ICD-10-PCS; 2020-11-17)
PROC: 5A09357 Assistance with Respiratory Ventilation, Less than 24 Consecutive Hours, Continuous Positive Airway Pressure (ICD-10-PCS; 2020-11-17)
PROC: 5A0935A Assistance with Respiratory Ventilation, Less than 24 Consecutive Hours, High Flow/Velocity Cannula (ICD-10-PCS; 2020-11-18)
PROC: 5A09357 Assistance with Respiratory Ventilation, Less than 24 Consecutive Hours, Continuous Positive Airway Pressure (ICD-10-PCS; 2020-11-18)
PROC: 5A09357 Assistance with Respiratory Ventilation, Less than 24 Consecutive Hours, Continuous Positive Airway Pressure (ICD-10-PCS; 2020-11-19)
PROC: 5A0945A Assistance with Respiratory Ventilation, 24-96 Consecutive Hours, High Flow/Velocity Cannula (ICD-10-PCS; 2020-11-19)
PROC: 05HY33Z Insertion of Infusion Device into Upper Vein, Percutaneous Approach (ICD-10-PCS; 2020-11-19)
PROC: 5A0935A Assistance with Respiratory Ventilation, Less than 24 Consecutive Hours, High Flow/Velocity Cannula (ICD-10-PCS; 2020-11-19)
PROC: 5A0935A Assistance with Respiratory Ventilation, Less than 24 Consecutive Hours, High Flow/Velocity Cannula (ICD-10-PCS; 2020-11-20)
PROC: 30233N1 Transfusion of Nonautologous Red Blood Cells into Peripheral Vein, Percutaneous Approach (ICD-10-PCS; 2020-11-21)
PROC: 5A0935A Assistance with Respiratory Ventilation, Less than 24 Consecutive Hours, High Flow/Velocity Cannula (ICD-10-PCS; 2020-11-22)
PROC: 5A0935A Assistance with Respiratory Ventilation, Less than 24 Consecutive Hours, High Flow/Velocity Cannula (ICD-10-PCS; 2020-11-23)
PROC: 5A0935A Assistance with Respiratory Ventilation, Less than 24 Consecutive Hours, High Flow/Velocity Cannula (ICD-10-PCS; 2020-11-24)
PROC: 5A09357 Assistance with Respiratory Ventilation, Less than 24 Consecutive Hours, Continuous Positive Airway Pressure (ICD-10-PCS; 2020-11-24)
DX: U07.1 COVID-19 (principal); J96.01 Acute respiratory failure with hypoxia; J12.82 Pneumonia due to coronavirus disease 2019; G92 Toxic encephalopathy; E43 Unspecified severe protein-calorie malnutrition; J98.11 Atelectasis; D62 Acute posthemorrhagic anemia; Z68.43 Body mass index [BMI] 50.0-59.9, adult; Z96.643 Presence of artificial hip joint, bilateral; E66.01 Morbid (severe) obesity due to excess calories; F03.90 Unspecified dementia, unspecified severity, without behavioral disturbance, psychotic disturbance, mood disturbance, and anxiety; I12.9 Hypertensive chronic kidney disease with stage 1 through stage 4 chronic kidney disease, or unspecified chronic kidney disease; T38.0X5A Adverse effect of glucocorticoids and synthetic analogues, initial encounter; E11.65 Type 2 diabetes mellitus with hyperglycemia; B37.9 Candidiasis, unspecified; N18.30 Chronic kidney disease, stage 3 unspecified; E11.22 Type 2 diabetes mellitus with diabetic chronic kidney disease; F29 Unspecified psychosis not due to a substance or known physiological condition; Z79.01 Long term (current) use of anticoagulants; Y92.89 Other specified places as the place of occurrence of the external cause